=== PATIENT | male | born 2000 | race Caucasian/White ===

== ENCOUNTER 2024-12-22 02:50 | Emergency (ER) | payer BC, SELFPAY ==
[2024-12-22 02:54] VITALS: BP 157/107; PULSE 112; RESP 12; TEMP 36.9; O2SAT 98; BMI 27.6
--- NOTE | 2024-12-22 03:38 | EKG12_ITS ---
Test Reason : CP Blood Pressure : */* mmHG Vent. Rate : 111 BPM Atrial Rate : 111 BPM P-R Int : 152 ms QRS Dur : 104 ms QT Int : 346 ms P-R-T Axes : 41 80 17 degrees QTcB Int : 470 ms Sinus tachycardia Otherwise normal ECG Confirmed by Lauri Higgins ([id number]), telegraph editor YULI SOTO ([id number]) on 12/23/2024 6:54:48 AM Referred By: Confirmed By: Lauri Higgins
--- NOTE | 2024-12-22 03:45 | EDS_ITS ---
HPI History of Present Illness Chief Complaint: Chest Pain Informant: patient Narrative Narrative: Healthy 24-year-old, he woke up just prior to arrival with left-sided nonpleuritic chest discomfort radiating up into the left neck and shoulder, some burning discomfort. Lasted about 10 minutes as he sat up and gradually resolved. Now occasional very mild discomfort. No recent illness. No dyspnea. No palpitations or syncope/presyncope. No abdominal discomfort nausea, vomiting, or numbness/weakness. No known family history of heart disease at a young age. Non-smoker. Never had this before. He is afraid he is having a heart attack. [facility] Medical History no medical history no medical history Home Medications ?Medication ?Instructions ?Recorded ?Last Taken ?Type NK 12/22/24 Unknown History Allergy/AdvReac Type Severity Reaction Status Date / Time cefuroxime Allergy Severe HIVES Verified 12/22/24 02:54 crab Allergy Severe HIVES Verified 12/22/24 02:54 doxycycline Allergy Severe Hives Verified 12/22/24 02:54 hydrocortisone AdvReac Severe Hives Verified 12/22/24 02:54 polymyxin B AdvReac Intermediate Rash Verified 12/22/24 02:54 Family History no significant family his Surgical History no surgical history Social History Smoking Status: Never smoker ROS ROS ED Constitutional Constitutional ED: Denies chills or fever(s) Eyes Eyes: Denies change in vision or diplopia ENT ENT ED: Denies rhinorrhea or sore throat Cardiovascular Cardiovascular: Reports as per HPI and chest pain; Denies palpitations Respiratory/Chest Respiratory/Chest: Denies cough or dyspnea Gastrointestinal Gastrointestinal: Denies abdominal pain, diarrhea, nausea or vomiting Genitourinary Genitourinary ED: Denies dysuria or hematuria Musculoskeletal Musculoskeletal: Denies back pain or neck pain Integumentary Denies abscess or rash Neurologic Neurologic: Denies headache(s), paresthesias or weakness Psychiatric Psychiatric: Denies anxiety or suicidal thoughts EXAM Physical Exam Const Vital Signs: 12/22/24 02:54 12/22/24 02:56 12/22/24 03:46 Temperature 98.5 F Temperature Source Oral Pulse Rate 112 H Respiratory Rate 12 Respiratory Effort Normal Blood Pressure 157/107 H Blood Pressure Mean 123 Pulse Ox 98 Oxygen Delivery Method Room Air Room Air 12/22/24 05:00 12/22/24 07:00 Temperature Temperature Source Pulse Rate 89 95 Respiratory Rate 12 18 Respiratory Effort Blood Pressure 128/94 H 148/107 H Blood Pressure Mean 105 120 Pulse Ox 96 95 Oxygen Delivery Method Room Air Positive well nourished and well developed General Appearance ED: well developed and NAD HEENT Reports moist mucous membranes normocephalic and atraumatic Eyes PERRL and EOMs intact bilaterally Neck full ROM and supple Resp normal respiratory effort and clear to auscultation bilaterally Cardio regular rate, regular rhythm and no murmurs GI non-tender and non-distended Auscultation: normoactive bowel sounds Palpation: soft Back/Spine no CVA tenderness General Back: other FROM Extremity normal to inspection General Extremety ED: Negative for edema, pulses abnormal or tenderness General Extremity: Negative for edema or pulses abnormal Neuro oriented x3, CN's II-XII intact bilaterally and no sensory deficits noted Sensorium / Orientation: awake and alert Motor Exam: strength 5/5 throughout Skin no rashes or lesions noted and no wounds Heart Score History: Moderately Suspicious ECG: Normal Age: </= 45 years Risk Factors: No Risk Factors Troponin: </= Normal Limit Score: 1 MDM MDM MDM Narrative Medical decision making narrative: He states his symptoms are gone. He is a little anxious, this may be causing his tachycardia, but his exam is otherwise normal. I think this was probably esophagus-related discomfort. I advised him that to be sure, 2 sequential troponins would be necessary and recommended and he is comfortable with that. Two-view chest x-ray on my interpretation is normal. I do not think this is a PE, he has no leg pain or swelling, palpable cords, calf tenderness, nor immobilization/surgery/travel recently or history of DVT or PE. Labs are normal including 2 sequential troponin measurements. Patient was given Mylanta and pantoprazole because he would still having some mild residual discomfort, he feels better, stable for discharge home. If he continues to have episodes he was advised to take a 2-week course of a PPI. Lab Data Attestation: I reviewed the patient's lab results. Labs: Laboratory Results - last 24 hr 12/22/24 03:40 WBC 8.7 RBC 5.07 Hgb 15.7 Hct 45.0 MCV 88.8 MCH 31.0 MCHC 34.9 RDW Std Deviation 37.6 RDW Coeff of Ilene 11.8 Plt Count 180 MPV 8.6 Immature Gran % (Auto) 0.100 Neut % (Auto) 59.3 Lymph % (Auto) 24.6 Pender % (Auto) 13.4 H Eos % (Auto) 2.1 Baso % (Auto) 0.5 Absolute Neuts (auto) 5.2 Absolute Lymphs (auto) 2.14 Nucleated RBC % 0 Sodium 137 Potassium 3.6 Chloride Direct 102 Carbon Dioxide 22.9 Anion Gap 12 BUN 13 Creatinine 0.85 Estim Creat Clear Calc 141.62 Est GFR (MDRD) Non-Af 125 BUN/Creatinine Ratio 14.9 Glucose 104 H Calcium 9.2 Troponin T High Sens < 6 Radiography Diagnostic Testing: Clinical Impression(s) from Imaging Studies Chest X-Ray 12/22/24 03:56 IMPRESSION: No evidence of acute disease.. Reading Location: [facility] Rhythm Strip Rhythm Strip: Sinus Rhythm Rate: 111 Ectopy: None EKG Initial EKG: Attestation: I personally reviewed and interpreted this EKG as follows: Interpretation: No Acute Injury Pattern and Sinus Tachycardia Comments: Nml axis & intervals; nml EKG except for mild tachycardia Discharge Plan Triage Chief Complaint: Chest Pain ED Provider: Tyrone Arzola Dx/Rx/DC Orders Clinical Impression: Non-cardiac chest pain Instructions: ED Chest Pain, Noncardiac Prescriptions: No Action NK Primary Care Provider: JESSICA POST Referrals: JESSICA POST [Other] - As Needed Activity Restrictions/Additional Instructions: If you continue to have episodes of discomfort, consider taking a 2-week course of daily Prilosec or Prevacid or Nexium. Print Language: Kazakh Disposition Disposition: Home, Self Care
[2024-12-22 03:54] LABS: Absolute Lymphocyte Count 2.14 X10^3/uL (0.83-4.51); Absolute Neutrophil Count 5.2 X10^3/uL (2.0-7.7); Basophil# 0.04 X10^3/uL; Basophil% 0.5 % (0-1); Eosinophil# 0.18 X10^3/uL; Eosinophils% 2.1 % (0-5); Hemoglobin 15.7 g/dL (13.0-16.5); Lymphocyte # 2.14 X10^3/ul (0.83-4.51); Lymphocyte % 24.6 % (19-41); Mean Corp Hgb Conc 34.9 g/dL (32-36); Mean Corpuscular Volume 88.8 fL (80-94); Mean Platelet Vol. 8.6 fl (6.2-12.0); Monocyte# 1.17 X10^3/uL; Monocyte% 13.4 % (0-10); NRBC Flagged by Analyzer 0 % (0-5); Neutrophil # 5.17 X10^3/uL (2.7-7.7); Neutrophil % 59.3 % (47-70); Platelet Count 180 K/mm3 (150-450); RBC Distribution Width CV 11.8 % (11.6-14.6); RBC Distribution Width SD 37.6 fl (35.1-43.9); Red Blood Count 5.07 M/mm3 (4.6-6.2); White Blood Count 8.7 K/mm3 (4.4-11.0)
--- NOTE | 2024-12-22 03:56 | RAD_ITS ---
PROCEDURE: CHEST PA AND LATERAL REASON FOR EXAM: Chest pain TECHNIQUE: PA and lateral views of the chest. COMPARISON: None. FINDINGS: The lungs are clear. Pulmonary vascularity appears within limits. No pneumothorax or pleural effusion. The cardiac and mediastinal contours appear within limits. The visualized osseous structures appear within limits. RAD/Chest PA and Lateral IMPRESSION: No evidence of acute disease.. Reading Location: [id number]
[2024-12-22 05:00] VITALS: BP 128/94; PULSE 89; RESP 12; O2SAT 96
[2024-12-22 05:03] LABS: Troponin T High Sensitivity < 6 ng/L (<=22)
[2024-12-22 05:20] LABS: Anion Gap 12 (5-15); BUN 13 mg/dL (4-19); BUN/Creat Ratio 14.9 RATIO (10-20); Calcium 9.2 mg/dL (7.6-11.0); Carbon Dioxide 22.9 mmol/L (22.0-29.0); Chloride 102 mmol/L (96-108); Creatinine, Serum 0.85 mg/dL (0.70-1.20); EST Glomerular Filtration Rate 125 (>60); Estimated Creatinine Clearance 141.62 ml/min (50-250); Glucose 104 mg/dL (70-99); Potassium 3.6 mmol/L (3.3-5.1); Sodium Level 137 mmol/L (133-145)
[2024-12-22] MEDS: Pantoprazole Sodium 40 MG Tablet PO (05:40)
[2024-12-22] MEDS: Mag Hydrox/Al Hydrox/Simeth 30 ML UDC PO (05:41)
[2024-12-22 07:00] VITALS: BP 148/107; PULSE 95; RESP 18; O2SAT 95
[2024-12-22 08:15] LABS: TROPONIN VARIANCE 2 HR UNABLE TO CALCULATE; Troponin T High Sens 2 HR 6 ng/L (<=22)
[2024-12-22 08:33] VITALS: BP 154/101; PULSE 91; RESP 18; TEMP 36.8; O2SAT 96
== END 2024-12-22 08:41 | disposition home or self-care (01) ==
PROVIDERS: Emergency Provider Emergency Medicine; Visit Provider Emergency Medicine
DX: R07.89 Other chest pain (principal)
CPT/HCPCS: 71046; 80048; 84484; 85025; 93005; 99284; A4216